=== PATIENT | male | born 1950 | race Caucasian/White ===

== ENCOUNTER 2020-02-17 08:30 | Emergency (ER) | payer MEDICARE, OTHER, SELFPAY ==
[2020-02-17 08:42] VITALS: BP 181/89; PULSE 78; RESP 16; TEMP 36.8; O2SAT 100; BMI 25.9
--- NOTE | 2020-02-17 09:03 | DI.US.S_ITS ---
PROCEDURE: US PERIPH VENOUS LOW EXTREM LT INDICATIONS: left leg pain and swelling TECHNIQUE: Real-time imaging, as well as color and pulse Doppler interrogation, were performed of the lower extremity deep veins from the inguinal ligament to the popliteal fossa. COMPARISON: None. FINDINGS: The common femoral, femoral and popliteal veins are normally compressible, and free of intraluminal thrombus. Color and pulse Doppler demonstrate normal phasic intraluminal flow. There is normal augmentation response to distal compression maneuver. IMPRESSION: No DVT found. Dictated by: Dominick Santa M.D. on 02/17/2020 at 11:22 Approved by: Dominick Santa M.D. on 02/17/2020 at 11:22
--- NOTE | 2020-02-17 09:03 | DI.RAD.S_ITS ---
PROCEDURE: XR KNEE LT 3V INDICATIONS: left knee pain TECHNIQUE: 3 views of the knee were acquired. COMPARISON: None. FINDINGS: Bones: No fractures or dislocations. No suspicious bony lesions. Soft tissues: No joint effusion. No suspicious soft tissue calcifications. IMPRESSION: No trauma found. Dictated by: Dominick Santa M.D. on 02/17/2020 at 9:52 Approved by: Dominick Santa M.D. on 02/17/2020 at 9:54
--- NOTE | 2020-02-17 09:05 | ED_ITS ---
HPI - Extremity Problem General Chief complaint: Extremity Problem,Nontraumatic Stated complaint: left leg villa down hurting Time Seen by Provider: 02/17/20 08:40 Source: patient Mode of arrival: Family Vehicle Limitations: no limitations History of Present Illness HPI Narrative: CC: Left leg swelling and pain over the left villa HPI: The patient is a very active 69-year-old male who states that he has had left leg pain for the last 2 days prior to admission. He states that he woke up and just developed pain and discomfort spontaneously in the left anterior leg. He denies any new recent fall injury or crush injury. He injured the leg significantly 3-4 years ago and thought maybe this was just a flare up. 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 He is worried because he states that he is driving to [place] on Thursday and does not want the pain to flare up. He says the pain is a dull achy discomfort that is 5 to 7/10 in intensity and sometimes sharp and stabbing when walking and bearing weight. He denies any recent head injury neck injury back injury. He has had no fever chills or sweats. He denies a history of diabetes mellitus stroke myocardial infarction but has a history of hypertension. He does not smoke cigarettes drinks alcohol socially does not use marijuana. Related Data Home Medications Medication Instructions Recorded Confirmed hydroxychloroquine 02/17/20 losartan 25 mg PO DAILY 02/17/20 02/17/20 meloxicam 15 mg PO DAILY 02/17/20 02/17/20 Previous Rx's Medication Instructions Recorded doxycycline hyclate 100 mg PO BID #14 cap 02/17/20 lidocaine 1 patch TOP DAILY #5 each 02/17/20 naproxen [Naprosyn] 500 mg PO BID PRN #14 tab 02/17/20 Allergies Allergy/AdvReac Type Severity Reaction Status Date / Time No Known Drug Allergies Allergy Verified 02/17/20 08:47 Review of Systems Review of Systems Narrative: REVIEW OF SYSTEMS: CONSTITUTIONAL: The patient denies any fever chills or sweats. NEUROLOGICAL: He has had no headache head injury numbness tingling paresthesias anesthesia is presents or paralysis. EENT: He has had no sore throat change in vision loss of vision CARDIO-PULMONARY: He denies any chest pain cough shortness of breath HEMOTOLOGICAL: He denies any bleeding abnormalities or bruising. GASTROINTESTINAL: He has had no nausea vomiting diarrhea GENITAL URINARY: He has had no urinary symptoms. MUSCULOSKELETAL/ RHEUMATOLOGICAL: The only pain and discomfort is in his left leg. His calf seems to be swollen and mildly tight. No known injury no back pain. Patient History Medical History Arthritis (Acute) Social History Smoking Status: Former smoker Smoking Status: Former smoker alcohol intake frequency: 0-2 drinks per day Substance Use Type: does not use Exam Narrative Exam Narrative: PHYSICAL EXAM: CONSTITUTIONAL: Awake, Alert, Oriented, Coherent, Cooperative in NAD. HEAD: AT/NC EENT: PERRL, FROM of eyes, no discharge, no nystagmus NECK: Supple, no obvious JVD, Trachea is midline without stridor, no palpable LN. SPINE: Palpationof the cervical, Thoracic, Lumbar or Sacral spine reveals no gross deformity or tenderness. No CVA tenderness. THORAX: No deformity, retractions, chest wall tenderness. LUNGS: Clear, symmetrical breath sounds without respiratory distress. HEART: Normal heart tones, regular rhythm and rate without murmur. ABDOMEN: Soft, non-tender, without guarding, rebound, rigidity or palpable mass. EXTREMITIES: The patient has a swollen tender red warm prepatellar lateral swollen bursa. He has full flexion extension of his knee and left hip. There is mild tenderness to palpation of the posterior calf with mild swelling of the left leg. Dorsalis pedis pulse is intact and 1+.. SKIN: No rash, bruising, petechiae or purpura. NEURO: Awake, alert, oriented, conversive, cranial nerves II-XII are symmetrical , moves all 4 extremities and is ambulatory. Initial Vital Signs Initial Vital Signs: Vital Signs Temperature 98.3 F 02/17/20 08:42 Pulse Rate 78 02/17/20 08:42 Respiratory Rate 16 02/17/20 08:42 Blood Pressure 181/89 H 02/17/20 08:42 Pulse Oximetry 100 02/17/20 08:42 Course Course Course Narrative: 917: The patient is on meloxicam and hydroxychloroquine for rheumatoid arthritis. He has had no a arrhythmias racing of his heart dizziness or lightheadedness. The patient is worried that he may have a blood clot in his legs especially when he is driving to [place]. 1045: The ultrasound stated that his ultrasound was negative for deep vein thrombophlebitis. Orders Ordered: Discontinued Medications Ketorolac Tromethamine (Toradol) 15 mg IM NOW ONE Stop: 02/17/20 09:05 Last Admin: 02/17/20 09:12 Dose: 15 mg Documented by: SERAFIN Lidocaine (Lidoderm) 1 each TOP NOW ONE Stop: 02/17/20 10:10 Last Admin: 02/17/20 10:31 Dose: 1 each Documented by: SERAFIN Vital Signs Vital signs: Vital Signs - 8 hr 02/17/20 08:42 02/17/20 09:59 Temperature 98.3 F Pulse Rate 78 68 Respiratory Rate 16 Blood Pressure 181/89 H Blood Pressure [Right Arm] 150/76 H Pulse Oximetry 100 100 MDM - Extremity (Nontraumatic) Lab Data Result diagrams: 02/17/20 09:21 Labs: Lab Results 02/17/20 Range/Units 09:21 WBC 10.4 (4.5-11.0) X10^3/uL RBC 4.22 L (4.5-5.9) X10^6/uL Hgb 13.6 (13.5-17.5) g/dL Hct 38.4 L (41-53) % MCV 91.0 (80-100) fL MCH 32.3 (26-34) PG MCHC 35.5 (30-36) % RDW 13.8 (11.6-14.8) % Plt Count 180 (150-400) X10^3/uL Neut % (Auto) 70.4 (50-75) % Lymph % (Auto) 13.0 L (25-40) % Hughes % (Auto) 13.4 (3-14) % Eos % (Auto) 2.7 (2-4) % Baso % (Auto) 0.5 (0-2) % Neut # (Auto) 7300 H (5476-8328) /uL Lymph # (Auto) 1400 (5617-6498) /uL Hughes # (Auto) 1400 H (0-900) /uL Eos # (Auto) 300 (0-450) /uL Baso # (Auto) 100 (0-100) /uL Discharge Plan Departure Patient Disposition: Home Clinical Impression: Bursitis, prepatellar, left Discharge Date/Time: 02/17/20 10:51 Instructions: DI for Bursitis Activity Restrictions/Additional Instructions: 1. The the swelling over your anterior left knee is a prepatellar bursitis. It is due to at irritation on your knees. If you must be on your knees please use knee cushions/protectors. Do not wrap the knees or the bursa with an Sohail wrap or neoprene wrap. This potentially can make the bursitis worse with increased friction and pressure. 2. Rest the knees as much as possible. 3. Apply ice cold compresses for 20-30 minutes every 2-3 hours for the next 48 hours as much as possible. 4. For the pain and discomfort take Naprosyn 500 mg twice a day instead of your meloxicam . Do not take both the meloxicam or Naprosyn. Take 1 or the other take the 1 which seems to help your pain and discomfort the most.. 5. If the bursitis becomes more red, more tender, or you develop a fever you need to proceed to the nearest emergency department to be re-evaluated in determine whether not you are developing an infection. Prescriptions: New doxycycline hyclate 100 mg capsule 100 mg PO BID Qty: 14 RF: 0 naproxen [Naprosyn] 500 mg tablet 500 mg PO BID PRN (Reason: pain) Qty: 14 RF: 0 lidocaine 5 % adhesive patch,medicated 1 patch TOP DAILY Qty: 5 RF: 0 No Action hydroxychloroquine RF: 0 meloxicam 15 mg Tablet 15 mg PO DAILY RF: 0 losartan 25 mg Tablet 25 mg PO DAILY RF: 0
[2020-02-17] MEDS: KETOROLAC 60 MG/2 ML VIAL 15 MG IM (09:12)
[2020-02-17 09:29] LABS: Add Manual Diff / Slide Review NO; Basophils Absolute Auto 100 /uL (0-100); Basophils Percent Auto 0.5 % (0-2); Eosinophils Absolute Auto 300 /uL (0-450); Eosinophils Percent Auto 2.7 % (2-4); Hematocrit 38.4 % (41-53); Hemoglobin 13.6 g/dL (13.5-17.5); Lymphocytes Absolute Auto 1400 /uL (1100-4500); Mean Corpuscular HGB Conc 35.5 % (30-36); Mean Corpuscular Hemoglobin 32.3 PG (26-34); Monocytes Absolute Auto 1400 /uL (0-900); Monocytes Percent Auto 13.4 % (3-14); Neutrophils Absolute Auto 7300 /uL (1500-7000); Neutrophils Percent Auto 70.4 % (50-75); Platelet Count 180 X10^3/uL (150-400); Red Blood Cell Count 4.22 X10^6/uL (4.5-5.9); Red Cell Distribution Width 13.8 % (11.6-14.8); White Blood Cell Count 10.4 X10^3/uL (4.5-11.0)
[2020-02-17 09:59] VITALS: BP 150/76; PULSE 68; O2SAT 100
[2020-02-17] MEDS: LIDOCAINE PATCH 1 EACH ADH..PATCH TOP (10:31)
== END 2020-02-17 10:51 | disposition home or self-care (01) ==
PROVIDERS: Emergency Provider Emergency Medicine
DX: M70.42 Prepatellar bursitis, left knee (principal)
CPT/HCPCS: 36415; 73562; 85025; 93971; 96372; 99283; J1885

== ENCOUNTER → 2020-03-28 12:36 | Outpatient (CLI) | payer MEDICARE, OTHER, SELFPAY | PROVIDERS: Visit Provider Physician Assistant | DX: R21 Rash and other nonspecific skin eruption (principal) | CPT/HCPCS: 87070; 87075; 87077; 87186; 87205 ==

== ENCOUNTER 2022-06-06 13:08 | Emergency (ER) | payer MEDICARE, BC, SELFPAY ==
[2022-06-06 13:25] VITALS: BP 156/86; PULSE 82; RESP 16; TEMP 36.5; O2SAT 97; BMI 23.5
[2022-06-06 13:33] VITALS: BP 168/93; PULSE 70; RESP 18; O2SAT 100
[2022-06-06 13:36] VITALS: BP 168/93; PULSE 89; RESP 13; O2SAT 100
[2022-06-06 13:41] VITALS: TEMP 37.1
--- NOTE | 2022-06-06 13:54 | ED_ITS ---
HPI - Skin/Abscess/Foreign Bdy General Chief complaint: Skin/Abscess/Foreign Body Stated complaint: Swelling in right arm- sent by [facility] Time Seen by Provider: 06/06/22 13:32 Source: patient Mode of arrival: Ambulatory History of Present Illness HPI narrative: Patient is a 72-year-old male who a couple days ago started noticing some pain and swelling and redness to his right elbow. There is not 1 specific incident that caused his discomfort. He does have a ?skin condition ?for which she sees a optical effects layout person that causes him to have ulcerations in his skin. He is several those on his upper extremities. These are not new for him. He denies any fever. He states he has some pressure when he flexes his elbow but no pain. He went to the walk-in clinic was sent to the emergency department for evaluation. Related Data Home Medications Medication Instructions Recorded Confirmed hydroxychloroquine 02/17/20 03/28/20 losartan 25 mg tablet 25 mg PO DAILY 02/17/20 03/28/20 meloxicam 15 mg tablet 15 mg PO DAILY 02/17/20 03/28/20 Previous Rx's Medication Instructions Recorded doxycycline hyclate 100 mg capsule 100 mg PO BID #14 caps 02/17/20 lidocaine 5 % topical patch 1 patch topical DAILY #5 ea 02/17/20 naproxen 500 mg tablet (Naprosyn) 500 mg PO BID PRN pain #14 tabs 02/17/20 triamcinolone acetonide 0.1 % 1 applic topical BID #80 grams 03/28/20 topical cream sulfamethoxazole 400 1 tab PO BID 7 days #14 tabs 06/06/22 mg-trimethoprim 80 mg tablet (Bactrim) Allergies Allergy/AdvReac Type Severity Reaction Status Date / Time No Known Drug Allergies Allergy Verified 06/21/21 14:30 Review of Systems Constitutional Constitutional: Reports system reviewed and no additional complaints, except as documented Musculoskeletal Musculoskeletal: Reports system reviewed and no additional complaints, except as documented Integumentary/Breasts Skin/Breast: Reports system reviewed and no additional complaints, except as documented Neurologic Neurologic: Reports system reviewed and no additional complaints, except as documented Hematologic/Lymphatic On Anticoagulants: No Patient History Medical History Arthritis Cellulitis Skin rash Social History Smoking Status: Former smoker Smoking Status: Former smoker alcohol intake frequency: 0-2 drinks per day Substance Use Type: does not use Exam Initial Vital Signs Initial Vital Signs: Vital Signs Temperature 97.7 F 06/06/22 13:25 Pulse Rate 82 06/06/22 13:25 Respiratory Rate 16 06/06/22 13:25 Blood Pressure 156/86 H 06/06/22 13:25 Pulse Oximetry 97 06/06/22 13:25 Oxygen Delivery Method 06/06/22 13:25 HENND Head: normal to inspection and normocephalic Cardio Pulses: radial pulses present on the right Skin Other: Multiple lesions on bilateral upper extremities in various stages of healing. He has redness located mostly over the olecranon and some distal to this area that is warm to the touch. There is no active bleeding. No defined abscess. Neuro Sensory Exam: no sensory deficits noted Extrem Other: Full range of motion of the right elbow however he does have ?fullness? when he is in flexion. He states he has no joint tenderness with doing this. His right shoulder and right wrist unremarkable. Course Orders Ordered: Aspirin (Aspirin Ec 325 Mg Tablet) 325 mg PO NOW ONE Stop: 06/06/22 13:56 Vital Signs Vital signs: Vital Signs - 8 hr 06/06/22 13:25 06/06/22 13:33 06/06/22 13:41 Temperature 97.7 F 98.7 F Pulse Rate 82 70 Respiratory Rate 16 18 Blood Pressure 156/86 H 168/93 H Pulse Oximetry 97 100 Oxygen Delivery Method Room Air MDM - Skin/Abscess/Foreign Bdy MDM Narrative Medical decision making narrative: Patient does have findings that are concerning for cellulitis over his right elbow. He has multiple lesions on his right arm which could be the nidus for this. No defined abscess. He does have an effusion of the olecranon however it appears to be small. I did consider a septic joint however given his presentation today I discussed with him about drainage/arthrocentesis and we discussed the risks of potentially introducing an infection to this area going through the skin that is obviously cellulitic. I do have a low suspicion today for a septic joint given his presentation and the fact that he can flex and extend his elbow without much discomfort. The plan will be is to place him on oral antibiotics for the next couple days however if his symptoms worsen he will return to the emergency department and understands he may need a more complete workup. He expressed understanding and agreement this plan. Discharge Plan Departure Patient Disposition: Home Clinical Impression: Cellulitis Instructions: DI for Cellulitis -- Adult Activity Restrictions/Additional Instructions: A prescription for antibiotics was sent to [facility]. Start taking it as directed. Like we discussed over the next couple days if your symptoms worsen or you have more pain or you start having fevers or the redness worsens you do need to return to the emergency department. Contact your primary doctor for follow-up. Prescriptions: New sulfamethoxazole-trimethoprim [Bactrim] 400-80 mg tablet 1 tab PO BID 7 Days Qty: 14 0RF No Action triamcinolone acetonide 0.1 % cream 1 applic TOP BID Qty: 80 0RF hydroxychloroquine meloxicam 15 mg Tablet 15 mg PO DAILY losartan 25 mg Tablet 25 mg PO DAILY doxycycline hyclate 100 mg capsule 100 mg PO BID Qty: 14 0RF naproxen [Naprosyn] 500 mg tablet 500 mg PO BID PRN (Reason: pain) Qty: 14 0RF Rx Instructions: take either meloxicam or naprosyn, not both, whichever relieves your pain lidocaine 5 % adhesive patch,medicated 1 patch TOP DAILY Qty: 5 0RF Rx Instructions: leave on most painful area for up to 12 hrs
[2022-06-06 14:00] VITALS: BP 154/102; PULSE 77; RESP 14; O2SAT 100
[2022-06-06] MEDS: ASPIRIN EC 325 MG TABLET PO (14:08)
== END 2022-06-06 14:10 | disposition home or self-care (01) ==
PROVIDERS: Emergency Provider Emergency Medicine
DX: L03.113 Cellulitis of right upper limb (principal)
CPT/HCPCS: 99283

== ENCOUNTER 2023-03-31 10:36 | Emergency (ER) | payer MEDICARE, BC, SELFPAY ==
[2023-03-31] VITALS (10 sets, daily range): BP systolic 137–194; BP diastolic 71–89; PULSE 66–94; RESP 14–26; TEMP 36.5; O2SAT 90–100; BMI 25.0
--- NOTE | 2023-03-31 10:49 | DI.RAD.S_ITS ---
PROCEDURE: XR CHEST 1V INDICATIONS: chest pain TECHNIQUE: One view of the chest was acquired. COMPARISON: None. FINDINGS: Surgical changes and devices: None. Lungs and pleura: Lungs are clear. No pleural effusions or pneumothorax. Mediastinum: Mediastinal contours appear normal. Heart size is normal. Bones and chest wall: No suspicious bony lesions. Overlying soft tissues appear unremarkable. IMPRESSION: No acute cardiopulmonary pathology. Dictated by: Bhupendra Yu M.D. on 03/31/2023 at 11:06 Approved by: Bhupendra Yu M.D. on 03/31/2023 at 11:06
[2023-03-31 10:57] LABS: Add Manual Diff / Slide Review NO; Basophils Absolute Auto 0 /uL (0-100); Basophils Percent Auto 0.4 % (0-2); Eosinophils Absolute Auto 0 /uL (0-450); Eosinophils Percent Auto 0.3 % (2-4); Hematocrit 41.6 % (41-53); Hemoglobin 14.4 g/dL (13.5-17.5); Lymphocytes Absolute Auto 700 /uL (1100-4500); Lymphocytes Percent Auto 6.8 % (25-40); Mean Corpuscular HGB Conc 34.7 % (30-36); Mean Corpuscular Hemoglobin 31.3 PG (26-34); Mean Corpuscular Volume 90.2 fL (80-100); Monocytes Absolute Auto 700 /uL (0-900); Monocytes Percent Auto 7.2 % (3-14); Neutrophils Absolute Auto 8800 /uL (1500-7000); Neutrophils Percent Auto 85.3 % (50-75); Platelet Count 189 X10^3/uL (150-400); Red Blood Cell Count 4.61 X10^6/uL (4.5-5.9); Red Cell Distribution Width 13.1 % (11.6-14.8); White Blood Cell Count 10.3 X10^3/uL (4.5-11.0)
[2023-03-31 11:12] LABS: INR 1.1 (0.9-1.3); Prothrombin Time 12.2 SECONDS (10.1-12.7)
[2023-03-31 11:14] LABS: Alanine Aminotransferase 55 IU/L (<50); Albumin 4.5 g/dL (3.5-5.0); Albumin Globulin Ratio 1.4 (1.0-2.8); Alkaline Phosphatase 88 U/L (38-126); Aspartate Aminotransferase 78 IU/L (17-59); BUN Creatinine Ratio 23.1 (6-22); Bilirubin Total 1.2 mg/dL (0.2-1.3); Blood Urea Nitrogen 21 mg/dL (9-20); Calcium 9.4 mg/dL (8.4-10.2); Carbon Dioxide 25 mmol/L (22-32); Chloride 95 mmol/L (98-107); Creatine Kinase 96 U/L (55-170); Estimated Glomerular Filt Rate > 60 mL/min (>60); Globulin 3.2 g/dL (1.7-4.1); Glucose 107 mg/dL (80-110); HEMOLYSIS < 15 (0-50); Lipase 107 U/L (23-300); Magnesium 1.5 mg/dL (1.6-2.3); Potassium 4.4 mmol/L (3.4-5.1); Sodium 129 mmol/L (137-145); Total Protein 7.7 g/dL (6.3-8.2)
[2023-03-31 11:15] LABS: PTT Partial Thromboplastin Tim 31 SECONDS (26-36)
[2023-03-31 11:25] LABS: Troponin I < 0.012 ng/mL (0.01-0.034)
--- NOTE | 2023-03-31 11:55 | ED.ARRPALP ---
HPI - Arrhythmia/Palpitations General Chief Complaint: Arrhythmia/Palpitations Stated Complaint: AFIB Time Seen by Provider: 03/31/23 11:50 Source: patient Mode of arrival: Ambulatory Limitations: no limitations History of Present Illness HPI narrative: This is a 72-year-old male with history of intermittent atrial fibrillation, hypertension, rheumatoid arthritis and alcohol use who presents with complaint of elevated and irregular heart rate earlier today. Patient states he felt a little off the last day he was checking his heart rate with a pulse oximeter and got up to 211 for a few seconds. He states he felt very tight in his chest he would some chest pain for those few seconds and then resolved, he states shortness of breath with exertion during that. But no shortness of breath. No active chest pain, no shortness of breath currently, no nausea no vomiting, no diaphoresis, no swelling of extremities. Patient states he has had some AFib issues in the past but has always resolved on its own. He states it went away by the time he arrived. Patient states he is on hydroxychloroquine for rheumatoid arthritis, losartan for blood pressure and an aspirin daily. No prior surgeries. No known drug allergies. No tobacco does drink a bottle of alcohol daily, no illicit. Primary care is through [facility] in [place], patient lives here intermittently has follow-up. Patient does not have primary care Cardiology. Related Data Home Medications Medication Instructions Recorded Confirmed hydroxychloroquine 02/17/20 03/28/20 losartan 25 mg tablet 25 mg PO DAILY 02/17/20 03/28/20 meloxicam 15 mg tablet 15 mg PO DAILY 02/17/20 03/28/20 Previous Rx's Medication Instructions Recorded doxycycline hyclate 100 mg capsule 100 mg PO BID #14 caps 02/17/20 lidocaine 5 % topical patch 1 patch topical DAILY #5 ea 02/17/20 naproxen 500 mg tablet (Naprosyn) 500 mg PO BID PRN pain #14 tabs 02/17/20 triamcinolone acetonide 0.1 % 1 applic topical BID #80 grams 03/28/20 topical cream Allergies Allergy/AdvReac Type Severity Reaction Status Date / Time No Known Drug Allergies Allergy Verified 03/31/23 10:49 Review of Systems Review of Systems ROS Unobtainable: All systems reviewed & are unremarkable except as noted in HPI and below Patient History Medical History Arthritis Cellulitis Skin rash Social History Smoking Status: Former smoker Smoking Status: Former smoker alcohol intake frequency: 0-2 drinks per day Substance Use Type: does not use Exam Narrative Exam Narrative: GENERAL: Alert and oriented x three, elderly male in no acute distress. HEENT: Head normocephalic, atraumatic, EOMI, pupils reactive, face symmetric, moist mucous membranes NECK: Supple, full range of motion CARDIOVASCULAR: Regular rate and rhythm without murmurs, rubs or gallops. No JVD. No swelling bilateral lower extremities. RESPIRATORY: Breath sounds equal bilaterally, no wheezes rales or rhonchi. ABDOMEN: Soft, nontender. Normoactive bowel sounds all 4 quadrants. No guarding or rebound, rigidity, no mass : No CVA tenderness EXTREMITIES: Normal range of motion, no clubbing or edema. Neurovascularly intact NEUROLOGICAL: Cranial nerves II through XII grossly intact. Moving all extremities SKIN: Warm, dry, no petechiae, no rashes or lesions. Initial Vital Signs Initial Vital Signs: Vital Signs Temperature 97.7 F 03/31/23 10:37 Pulse Rate 79 03/31/23 10:37 Respiratory Rate 18 03/31/23 10:37 Blood Pressure 172/81 H 03/31/23 10:37 Pulse Oximetry 99 03/31/23 10:37 Oxygen Delivery Method Room Air 03/31/23 10:37 Course Orders Ordered: ED Orders 03/31/23 10:46 BNP [NT-proBNP (BNP-Adult 18+)] Stat Complete Blood Count AUTO DIFF Stat Comprehensive Metabolic Panel Stat Lipase Stat Magnesium Stat PTT Partial Thromboplastin Jacob Stat Prothrombin Time INR Stat Troponin & CK Cardiac Panel Stat 03/31/23 10:49 XR chest 1V Stat 03/31/23 10:52 EKG-12 Lead Stat 03/31/23 12:34 Trop I [Troponin I] Stat Vital Signs Vital signs: Vital Signs - 8 hr 03/31/23 10:37 03/31/23 10:40 03/31/23 10:40 Temperature 97.7 F Pulse Rate 79 94 H Respiratory Rate 18 Blood Pressure 172/81 H 172/81 H Pulse Oximetry 99 98 Oxygen Delivery Method Room Air 03/31/23 11:00 03/31/23 11:00 03/31/23 11:30 Temperature Pulse Rate 74 Respiratory Rate 18 Blood Pressure 137/89 149/71 H Pulse Oximetry 98 Oxygen Delivery Method 03/31/23 11:30 03/31/23 12:00 03/31/23 12:00 Temperature Pulse Rate 72 72 Respiratory Rate 21 23 Blood Pressure 150/73 H Pulse Oximetry 97 97 Oxygen Delivery Method 03/31/23 12:32 03/31/23 12:33 03/31/23 12:33 Temperature Pulse Rate 71 70 Respiratory Rate 14 Blood Pressure 145/77 H Pulse Oximetry 90 L 97 Oxygen Delivery Method 03/31/23 13:00 03/31/23 13:30 03/31/23 13:40 Temperature Pulse Rate 71 66 72 Respiratory Rate 20 21 26 H Blood Pressure Pulse Oximetry 97 100 94 Oxygen Delivery Method 03/31/23 13:40 Temperature Pulse Rate Respiratory Rate Blood Pressure 194/76 H Pulse Oximetry Oxygen Delivery Method MDM - Arrhythmia/Palpitations Lab Data 03/31/23 10:46 03/31/23 10:46 Labs: Lab Results 03/31/23 03/31/23 03/31/23 Range/Units 10:46 10:46 10:46 WBC 10.3 (4.5-11.0) X10^3/uL RBC 4.61 (4.5-5.9) X10^6/uL Hgb 14.4 (13.5-17.5) g/dL Hct 41.6 (41-53) % MCV 90.2 (80-100) fL MCH 31.3 (26-34) PG MCHC 34.7 (30-36) % RDW 13.1 (11.6-14.8) % Plt Count 189 (150-400) X10^3/uL Neut % (Auto) 85.3 H (50-75) % Lymph % (Auto) 6.8 L (25-40) % [place] % (Auto) 7.2 (3-14) % Eos % (Auto) 0.3 L (2-4) % Baso % (Auto) 0.4 (0-2) % Neut # (Auto) 8800 H (6135-9521) /uL Lymph # (Auto) 700 L (0289-9277) /uL [place] # (Auto) 700 (0-900) /uL Eos # (Auto) 0 (0-450) /uL Baso # (Auto) 0 (0-100) /uL PT 12.2 (10.1-12.7) SECONDS INR 1.1 (0.9-1.3) APTT 31 (26-36) SECONDS Sodium 129 L (137-145) mmol/L Potassium 4.4 (3.4-5.1) mmol/L Chloride 95 L (98-107) mmol/L Carbon Dioxide 25 (22-32) mmol/L BUN 21 H (9-20) mg/dL Creatinine 0.91 (0.66-1.25) mg/dL Estimated GFR > 60 (>60) mL/min BUN/Creatinine Ratio 23.1 H (6-22) Glucose 107 (80-110) mg/dL Calcium 9.4 (8.4-10.2) mg/dL Magnesium 1.5 L (1.6-2.3) mg/dL Total Bilirubin 1.2 (0.2-1.3) mg/dL AST 78 H (17-59) IU/L ALT 55 H (<50) IU/L Alkaline Phosphatase 88 (38-126) U/L Total Creatine Kinase 96 (55-170) U/L Troponin I < 0.012 (0.01-0.034) ng/mL NT-Pro-B Natriuret Pep (<125) pg/mL Total Protein 7.7 (6.3-8.2) g/dL Albumin 4.5 (3.5-5.0) g/dL Globulin 3.2 (1.7-4.1) g/dL Albumin/Globulin Ratio 1.4 (1.0-2.8) Lipase 107 (23-300) U/L 03/31/23 03/31/23 Range/Units 10:46 12:34 WBC (4.5-11.0) X10^3/uL RBC (4.5-5.9) X10^6/uL Hgb (13.5-17.5) g/dL Hct (41-53) % MCV (80-100) fL MCH (26-34) PG MCHC (30-36) % RDW (11.6-14.8) % Plt Count (150-400) X10^3/uL Neut % (Auto) (50-75) % Lymph % (Auto) (25-40) % [place] % (Auto) (3-14) % Eos % (Auto) (2-4) % Baso % (Auto) (0-2) % Neut # (Auto) (4290-7442) /uL Lymph # (Auto) (2594-3075) /uL [place] # (Auto) (0-900) /uL Eos # (Auto) (0-450) /uL Baso # (Auto) (0-100) /uL PT (10.1-12.7) SECONDS INR (0.9-1.3) APTT (26-36) SECONDS Sodium (137-145) mmol/L Potassium (3.4-5.1) mmol/L Chloride (98-107) mmol/L Carbon Dioxide (22-32) mmol/L BUN (9-20) mg/dL Creatinine (0.66-1.25) mg/dL Estimated GFR (>60) mL/min BUN/Creatinine Ratio (6-22) Glucose (80-110) mg/dL Calcium (8.4-10.2) mg/dL Magnesium (1.6-2.3) mg/dL Total Bilirubin (0.2-1.3) mg/dL AST (17-59) IU/L ALT (<50) IU/L Alkaline Phosphatase (38-126) U/L Total Creatine Kinase (55-170) U/L Troponin I < 0.012 (0.01-0.034) ng/mL NT-Pro-B Natriuret Pep 408 H (<125) pg/mL Total Protein (6.3-8.2) g/dL Albumin (3.5-5.0) g/dL Globulin (1.7-4.1) g/dL Albumin/Globulin Ratio (1.0-2.8) Lipase (23-300) U/L Imaging Data Chest x-ray: Radiologist's Impresson: [address] [address] XRay Report Signed Patient: Isrrael Ochoa MR#: [id number] : 1950 Acct:[id number] Age/Sex: 72 / M Date of Service: 03/31/23 Loc: ED Accession Number: [id number] ?? Procedure: XR chest 1V Ordering Provider: Lili Koenig D.O. PROCEDURE:? XR CHEST 1V ? INDICATIONS:? chest pain ? TECHNIQUE:? One view of the chest was acquired.? ? COMPARISON:? None. ? FINDINGS:? ? Surgical changes and devices:? None.? ? Lungs and pleura:? Lungs are clear.? No pleural effusions or pneumothorax.? ? Mediastinum:? Mediastinal contours appear normal.? Heart size is normal.? ? Bones and chest wall:? No suspicious bony lesions.? Overlying soft tissues appear unremarkable.? ? IMPRESSION:? No acute cardiopulmonary pathology. ? ? Dictated by: Bhupendra Yu M.D. on 03/31/2023 at 11:06 ? ? Approved by: Bhupendra Yu M.D. on 03/31/2023 at 11:06?? ECG Data Attestation: I personally reviewed and interpreted this ECG as follows: Prior ECG tracings: not available for review Interpretation: Sinus rhythm rate of 77, SD 126 QRS of [address] No acute [address] elevation or depression. No priors for comparison available. Sinus rhythm rate of 68 SD 122 QRS of 90 QTC [address] depression or elevation noted. MDM Narrative Medical decision making narrative: This is a 72-year-old male with episode of irregular elevated heart rate at home, has had reported atrial fibrillation in the past but has always self resolved. He is anti quite with aspirin only, patient does drink quite a bit alcohol which would predispose him to arrhythmias. Patient's symptoms had resolved prior to arrival. Patient's labs show normal CBC no anemia, normal platelets, coags appropriate, sodium is 129 discussed with patient likely secondary to alcohol use, chloride 95, BUN 21, glucose of 107, Mag slightly low at 1.5, AST ALT are 78 and 55, troponin negative with a BNP of 408. Repeat troponin shows no change. EKG 1st and 2nd show no acute changes. Discussed with patient he and I reviewed all of his findings. Discussed decreasing alcohol intake. He is open to having cardiology follow up and having a Holter ZIO patch as an outpatient. He is cardiology established in [place] but not locally so referral was given here as he spends quite a bit of time in the area. Discharge Plan Departure Patient Disposition: Home Clinical Impression: Hyponatremia, Palpitations Instructions: DI for Palpitations Activity Restrictions/Additional Instructions: Please follow-up with cardiology. You would benefit from a Holter monitor or ZIO patch. Referral is included below. Please call for an appointment. Your sodium level is slightly low, this is likely related to your alcohol use, please follow-up to make sure this does not continue to drop. Low sodium levels can make people confused or altered and it very very low can cause seizure activity. Please return for new or worsening symptoms recurrent or persistent fast or irregular heartbeat, chest pain, shortness of breath, lightheadedness or passing out, new swelling in her extremities, persistent vomiting or sweatiness or other new or concerning changes. Prescriptions: No Action triamcinolone acetonide 0.1 % cream 1 applic TOP BID Qty: 80 0RF hydroxychloroquine meloxicam 15 mg Tablet 15 mg PO DAILY losartan 25 mg Tablet 25 mg PO DAILY doxycycline hyclate 100 mg capsule 100 mg PO BID Qty: 14 0RF naproxen [Naprosyn] 500 mg tablet 500 mg PO BID PRN (Reason: pain) Qty: 14 0RF Rx Instructions: take either meloxicam or naprosyn, not both, whichever relieves your pain lidocaine 5 % adhesive patch,medicated 1 patch TOP DAILY Qty: 5 0RF Rx Instructions: leave on most painful area for up to 12 hrs Referrals: Miscellaneous,MD Jv [Primary Care Provider] - Isaiah Wahl MD [Physician] - Stand Alone Forms: Patient Portal/API
[2023-03-31 12:46] LABS: NT-proBNP (BNP-Adult 18+) 408 pg/mL (<125)
[2023-03-31 13:08] LABS: Troponin I < 0.012 ng/mL (0.01-0.034)
== END 2023-03-31 13:44 | disposition home or self-care (01) ==
PROVIDERS: Emergency Provider Emergency Medicine
DX: E87.1 Hypo-osmolality and hyponatremia (principal); R00.2 Palpitations; R07.9 Chest pain, unspecified
CPT/HCPCS: 36415; 71045; 80053; 82550; 83690; 83735; 83880; 84484; 85025; 85610; 85730; 93005; 99284

== ENCOUNTER 2023-05-24 15:33 | Emergency (ER) | payer MEDICARE, BC, SELFPAY ==
[2023-05-24 15:38] VITALS: BP 138/63; PULSE 78; RESP 20; TEMP 36.8; O2SAT 99; BMI 23.8
[2023-05-24 15:46] VITALS: PULSE 82
--- NOTE | 2023-05-24 15:59 | ED.UPPEXIN ---
HPI - Extremity Injury (Upper) General Chief Complaint: Extremity Injury, Upper Stated Complaint: Cut left hand on tomato can Time Seen by Provider: 05/24/23 15:46 Source: patient Mode of arrival: Ambulatory History of Present Illness HPI narrative: Patient presents for evaluation of left hand cut. Patient was opening a can of tomatoes to make tomato sauce for spaghetti when he cut his hand. He does not remember when his last tetanus shot was, he believes he is out of date. Related Data Home Medications Medication Instructions Recorded Confirmed hydroxychloroquine 02/17/20 03/28/20 losartan 25 mg tablet 25 mg PO DAILY 02/17/20 03/28/20 meloxicam 15 mg tablet 15 mg PO DAILY 02/17/20 03/28/20 Previous Rx's Medication Instructions Recorded doxycycline hyclate 100 mg capsule 100 mg PO BID #14 caps 02/17/20 lidocaine 5 % topical patch 1 patch topical DAILY #5 ea 02/17/20 naproxen 500 mg tablet (Naprosyn) 500 mg PO BID PRN pain #14 tabs 02/17/20 triamcinolone acetonide 0.1 % 1 applic topical BID #80 grams 03/28/20 topical cream Allergies Allergy/AdvReac Type Severity Reaction Status Date / Time No Known Drug Allergies Allergy Verified 03/31/23 10:49 Review of Systems Review of Systems Narrative: All other review of systems negative except as mentioned Integumentary/Breasts Comments: Left hand laceration Patient History Medical History Arthritis Cellulitis Skin rash Social History Smoking Status: Former smoker Smoking Status: Former smoker alcohol intake frequency: 0-2 drinks per day Substance Use Type: does not use Exam Initial Vital Signs Initial Vital Signs: Vital Signs Temperature 98.2 F 05/24/23 15:38 Pulse Rate 78 05/24/23 15:38 Respiratory Rate 20 05/24/23 15:38 Blood Pressure 138/63 05/24/23 15:38 Pulse Oximetry 99 05/24/23 15:38 Oxygen Delivery Method Room Air 05/24/23 15:38 Const: Well-nourished, Well-developed, appears stated age Eyes: PERRL, EOMI, conjunctiva normal ENT: Atraumatic, dentition normal RESP: unlabored, clear bilaterally, no wheezing GI: Atraumatic, soft, nontender, nondistended, no rebound, no guarding MSK: Atraumatic, full range of motion, pulses equal Skin: Warm, Dry, 3 cm laceration base of right thumb Neuro: AO x3, CN II-XII grossly intact, moves all extremities Psych: affect normal, mood normal, not suicidal, not homicidal Procedures Laceration Repair Laceration 1: Site: hand Side (If applicable): left Size (cm): 3 Description: linear Depth: simple, single layer Local Anesthetic: lidocaine 1% Amount of anesthesia used (mL): 4 Pre-repair: irrigated extensively and deep structures intact Skin layer closed with: nylon Skin layer suture size: 4-0 Number of sutures: 6 Technique: simple, interrupted Course Course Course Narrative: Accidental laceration to base of left thumb. Patient is neurologically and vascularly intact. Tetanus shot was updated, wound repaired per procedure note. Excellent hemostasis achieved and capillary refill intact. Patient given wound care instructions, ED return precautions discussed at bedside. Patient expressed understanding of the plan and is in agreement at this time. All questions answered at the time of discharge. Orders Ordered: Discontinued Medications Diphtheria/Tetanus/Acell Pertussis (Tet,Diph,Pertuss(Acell),Vac/Pf 0.5 Ml Syringe) 0.5 ml IM .ONCE ONE Stop: 05/24/23 16:00 Last Admin: 05/24/23 16:10 Dose: 0.5 ml Documented By: MARYAM Lidocaine HCl (Lidocaine 1% 20 Ml) 20 ml INJ INTRA-OP ONE Stop: 05/24/23 16:00 Last Admin: 05/24/23 16:09 Dose: 20 ml Documented By: RB Vital Signs Vital signs: Vital Signs - 8 hr 05/24/23 15:38 05/24/23 15:46 Temperature 98.2 F Pulse Rate 78 Pulse Rate [Left] 82 Respiratory Rate 20 Blood Pressure 138/63 Pulse Oximetry 99 Oxygen Delivery Method Room Air Discharge Plan Departure Patient Disposition: Home Clinical Impression: Laceration of hand Instructions: DI for Laceration Repair Activity Restrictions/Additional Instructions: SUTURE REMOVAL IN 7 DAYS Prescriptions: No Action triamcinolone acetonide 0.1 % cream 1 applic TOP BID Qty: 80 0RF hydroxychloroquine meloxicam 15 mg Tablet 15 mg PO DAILY losartan 25 mg Tablet 25 mg PO DAILY doxycycline hyclate 100 mg capsule 100 mg PO BID Qty: 14 0RF naproxen [Naprosyn] 500 mg tablet 500 mg PO BID PRN (Reason: pain) Qty: 14 0RF Rx Instructions: take either meloxicam or naprosyn, not both, whichever relieves your pain lidocaine 5 % adhesive patch,medicated 1 patch TOP DAILY Qty: 5 0RF Rx Instructions: leave on most painful area for up to 12 hrs Referrals: Miscellaneous,Doctor, MD [Primary Care Provider] - Stand Alone Forms: Patient Portal/API
[2023-05-24] MEDS: LIDOCAINE 1% 20 ML INJ (16:09)
[2023-05-24] MEDS: TET,DIPH,PERTUSS(ACELL),VAC/PF 0.5 ML SYRINGE IM (16:10)
[2023-05-24 17:03] VITALS: BP 142/60; PULSE 78; RESP 20; O2SAT 97
== END 2023-05-24 17:03 | disposition home or self-care (01) ==
PROVIDERS: Emergency Provider Emergency Medicine
DX: S61.412A Laceration without foreign body of left hand, initial encounter (principal); W26.8XXA Contact with other sharp object(s), not elsewhere classified, initial encounter; Z23 Encounter for immunization
CPT/HCPCS: 12002; 90471; 99283; 99284; 90715

== ENCOUNTER 2023-06-02 07:44 | Emergency (ER) | payer MEDICARE, BC, SELFPAY ==
[2023-06-02 07:53] VITALS: BP 162/76; PULSE 63; RESP 14; TEMP 36.7; O2SAT 99; BMI 23.5
--- NOTE | 2023-06-02 08:41 | ED.RECABL ---
HPI - Recheck/Abnormal Lab/Rx General Chief Complaint: Recheck/Abnormal Lab/Rx Stated Complaint: stitches removed Time Seen by Provider: 06/02/23 08:38 Source: patient Mode of arrival: Family Vehicle History of Present Illness HPI narrative: Patient 73-year-old male presents today to have sutures removed out of left hand. He cut his hand opening a can of tomato sauce seen on May 24, he had 6 sutures placed. Now here to get them out. Related Data Home Medications Medication Instructions Recorded Confirmed hydroxychloroquine 02/17/20 03/28/20 losartan 25 mg tablet 25 mg PO DAILY 02/17/20 03/28/20 meloxicam 15 mg tablet 15 mg PO DAILY 02/17/20 03/28/20 Previous Rx's Medication Instructions Recorded doxycycline hyclate 100 mg capsule 100 mg PO BID #14 caps 02/17/20 lidocaine 5 % topical patch 1 patch topical DAILY #5 ea 02/17/20 naproxen 500 mg tablet (Naprosyn) 500 mg PO BID PRN pain #14 tabs 02/17/20 triamcinolone acetonide 0.1 % 1 applic topical BID #80 grams 03/28/20 topical cream Allergies Allergy/AdvReac Type Severity Reaction Status Date / Time No Known Drug Allergies Allergy Verified 06/02/23 07:55 Review of Systems Review of Systems ROS Unobtainable: All systems reviewed & are unremarkable except as noted in HPI and below Patient History Medical History Arthritis Cellulitis Skin rash Social History Smoking Status: Former smoker Smoking Status: Former smoker alcohol intake frequency: 0-2 drinks per day Substance Use Type: does not use Exam Initial Vital Signs Initial Vital Signs: Vital Signs Temperature 98.1 F 06/02/23 07:53 Pulse Rate 63 06/02/23 07:53 Respiratory Rate 14 06/02/23 07:53 Blood Pressure 162/76 H 06/02/23 07:53 Pulse Oximetry 99 06/02/23 07:53 Oxygen Delivery Method Room Air 06/02/23 07:53 GENERAL: Well-appearing, well-nourished and in no acute distress. CARDIOVASCULAR: peripheral pulses in tact, cap refill <2 sec RESPIRATORY: No respiratory distress, speaks in full sentences without difficulty EXTREMITIES: Normal range of motion, no clubbing or edema. Neurovascularly intact NEUROLOGICAL: Cranial nerves II through XII grossly intact. Normal gait and speech. SKIN: Left hand laceration between thumb and index finger. Appears moistened but no gross drainage no erythema no sign of infection sutures in place Course Vital Signs Vital signs: Vital Signs - 8 hr 06/02/23 07:53 Temperature 98.1 F Pulse Rate 63 Respiratory Rate 14 Blood Pressure 162/76 H Pulse Oximetry 99 Oxygen Delivery Method Room Air MDM - Recheck/Abnormal Lab/Rx MDM Narrative Medical decision making narrative: Patient has had 6 sutures removed easily. There is still a small amount opening, Steri-Strips placed and Band-Aid placed. No need for antibiotics no evidence of infection. Discharge Plan Departure Patient Disposition: Home Clinical Impression: Visit for suture removal Instructions: DI for Suture Removal Activity Restrictions/Additional Instructions: *You have been diagnosed with suture removal *What to do: Keep and covered during the day while active or injury places. Keep an and dry with soap and water. May apply antibiotic ointment. Be sure to air out when able *Continue to take medications as directed *Follow up with your primary care provider in 2-3 days or call [phone] *Return to ER if you should have redness swelling drainage or any new, worsening or concerning symptoms Prescriptions: No Action triamcinolone acetonide 0.1 % cream 1 applic TOP BID Qty: 80 0RF hydroxychloroquine meloxicam 15 mg Tablet 15 mg PO DAILY losartan 25 mg Tablet 25 mg PO DAILY doxycycline hyclate 100 mg capsule 100 mg PO BID Qty: 14 0RF naproxen [Naprosyn] 500 mg tablet 500 mg PO BID PRN (Reason: pain) Qty: 14 0RF Rx Instructions: take either meloxicam or naprosyn, not both, whichever relieves your pain lidocaine 5 % adhesive patch,medicated 1 patch TOP DAILY Qty: 5 0RF Rx Instructions: leave on most painful area for up to 12 hrs Referrals: Miscellaneous,Doctor, MD [Primary Care Provider] - Stand Alone Forms: Patient Portal/API
== END 2023-06-02 08:50 | disposition home or self-care (01) ==
PROVIDERS: Emergency Provider Emergency Medicine
DX: Z48.02 Encounter for removal of sutures (principal)
CPT/HCPCS: 99281

== ENCOUNTER 2024-03-27 15:49 | Observation (INO) | payer MEDICARE, BC, SELFPAY ==
[2024-03-27] VITALS (23 sets, daily range): BP systolic 166–210; BP diastolic 70–100; PULSE 53–65; RESP 16–37; TEMP 36.4–36.5; O2SAT 94–100; BMI 25.0; BMI 24.1
--- NOTE | 2024-03-27 16:06 | DI.RAD.S_ITS ---
PROCEDURE: XR CHEST 1V INDICATIONS: chest pain TECHNIQUE: One view of the chest was acquired. COMPARISON: [facility], CR, XR CHEST 1V, 03/31/2023, 10:46. FINDINGS: Surgical changes and devices: None. Lungs and pleura: Lungs are clear. No pleural effusions or pneumothorax. Mediastinum: Mediastinal contours appear normal. Heart size is normal. Bones and chest wall: No suspicious bony lesions. Overlying soft tissues appear unremarkable. IMPRESSION: No acute cardiopulmonary abnormality is seen. Dictated by: Javan Domingo M.D. on 03/27/2024 at 15:41 Approved by: Javan Domingo M.D. on 03/27/2024 at 15:41
--- NOTE | 2024-03-27 16:14 | EKG_ITS ---
[address] [address] Test Date: 2024-03-27 Pat Name: Isrrael Ochoa Department: [facility] Room: Gender: Male Help Desk Operator: BRIGITTE : 1950 Requested By: Order Number: [id number] Reading MD: Soto Finch MD Measurements Intervals [place] Rate: 60 P: 27 NE: 160 QRS: -7 QRSD: 80 T: -40 QT: 498 QTc: 498 Interpretive Statements Normal sinus rhythm Septal infarct , age undetermined T wave abnormality, consider anterolateral ischemia Electronically Signed On 03-28-2024 7:55:37 PDT by Soto Finch MD
--- NOTE | 2024-03-27 16:17 | ED_ITS ---
HPI - Chest Pain <Santhosh Mcdonald DO - Last Filed: 03/28/24 07:00> General Chief Complaint: Chest Pain Stated Complaint: SOB Time Seen by Provider: 03/27/24 16:07 Source: patient Mode of arrival: Ambulatory Limitations: no limitations History of Present Illness HPI narrative: Patient has a 73-year-old male. History of AFib over a year ago that sounds like converted on its own. Not on anticoagulation. No history of coronary artery disease. No history of CVA. Not a diabetic. Does have history of arthritis who is here for evaluation of 2 days of worsening shortness of breath/dyspnea on exertion. Did have some chest discomfort earlier today. No cough. Does have lower extremity swelling. He does have a history of alcohol abuse. Recently was discharged from 3 day medical detox. He did drink over the March 24 hol. He is here visiting. Tried to have a telemedicine visit with his primary doctor but was unable to perform this. He did take aspirin prior to his arrival here in the ER today. Related Data Home Medications Medication Instructions Recorded Confirmed hydroxychloroquine 02/17/20 03/28/20 losartan 25 mg tablet 25 mg PO DAILY 02/17/20 03/27/24 Previous Rx's Medication Instructions Recorded lidocaine 5 % topical patch 1 patch topical DAILY #5 ea 02/17/20 naproxen 500 mg tablet (Naprosyn) 500 mg PO BID PRN pain #14 tabs 02/17/20 triamcinolone acetonide 0.1 % 1 applic topical BID #80 grams 03/28/20 topical cream Allergies Allergy/AdvReac Type Severity Reaction Status Date / Time No Known Drug Allergies Allergy Verified 06/02/23 07:55 Review of Systems <Santhosh Mcdonald DO - Last Filed: 03/28/24 07:00> Review of Systems ROS Unobtainable: All systems reviewed & are unremarkable except as noted in HPI and below Patient History <Santhosh Mcdonald DO - Last Filed: 03/28/24 07:00> Medical History Cellulitis Skin rash Arthritis Social History household members: spouse Smoking Status: Former smoker alcohol intake: current Smoking Status: Former smoker alcohol intake frequency: 3 or more drinks per day Substance Use Type: does not use Exam <Santhosh Mcdonald DO - Last Filed: 03/28/24 07:00> Initial Vital Signs Initial Vital Signs: Vital Signs Temperature 97.7 F 03/27/24 15:58 Pulse Rate 63 03/27/24 15:58 Respiratory Rate 18 03/27/24 15:58 Blood Pressure 187/82 H 03/27/24 15:58 Pulse Oximetry 99 03/27/24 15:58 Oxygen Delivery Method Room Air 03/27/24 15:58 Const General: cooperative, comfortable and No ill appearing HENCO Head: normal to inspection and normocephalic Resp Effort & Inspection: normal respiratory effort Auscultation: clear to auscultation bilaterally Cardio Rate: regular rate Rhythm: regular rhythm GI Inspection: normal to inspection and non-distended Neuro General: patient alert, patient awake and moves all extremities Extrem General: edema <Savage Yancey MD - Last Filed: 03/28/24 01:46> Initial Vital Signs Initial Vital Signs: Vital Signs Temperature 97.7 F 03/27/24 15:58 Pulse Rate 63 03/27/24 15:58 Respiratory Rate 18 03/27/24 15:58 Blood Pressure 187/82 H 03/27/24 15:58 Pulse Oximetry 99 03/27/24 15:58 Oxygen Delivery Method Room Air 03/27/24 15:58 Course <Santhosh Mcdonald DO - Last Filed: 03/28/24 07:00> Orders Ordered: Acetaminophen (Acetaminophen 325 Mg Tablet) 650 mg PO Q6H PRN PRN Reason: Fever/Mild Pain (1-3) Enoxaparin Sodium (Enoxaparin 40 Mg/0.4 Ml Syringe) 40 mg SUBCUT DAILY [facility] Folic Acid (Folic Acid 1 Mg Tablet) 1 mg PO DAILY [facility] Furosemide (Furosemide 40 Mg/4 Ml Vial) 40 mg IV DAILY [facility] Hydralazine HCl (Hydralazine 20 Mg/Ml Vial) 10 mg IV Q6HR PRN PRN Reason: Hypertension Last Admin: 03/28/24 05:29 Dose: 10 mg Documented By: BR Lorazepam (Lorazepam 1 Mg Tablet) 0 mg PO CIWAPRN PRN; Protocol PRN Reason: Alcohol Withdrawal Losartan Potassium (Losartan 25 Mg Tablet) 25 mg PO DAILY [facility] Metoprolol Tartrate (Metoprolol Ir 25 Mg Tablet) 25 mg PO BID [facility] Multivitamins (Multivitamin 1 Tablet) 1 tab PO DAILY [facility] Naloxone HCl (Naloxone 0.4 Mg/Ml Vial) 0.2 mg IV Q2MIN PRN PRN Reason: Opiate Reversal Ondansetron HCl (Ondansetron 4 Mg/2 Ml Inj) 4 mg IV Q8HR PRN PRN Reason: Nausea And Vomiting Pantoprazole Sodium (Pantoprazole Dr 20 Mg Tablet) 20 mg PO 0700 [facility] Last Admin: 03/28/24 06:43 Dose: 20 mg Documented By: DIVINA Thiamine HCl (Thiamine 100 Mg Tablet) 100 mg PO DAILY [facility] Stop: 03/31/24 09:01 Discontinued Medications Aspirin (Aspirin 81 Mg Chew Tab) 324 mg PO NOW ONE Stop: 03/27/24 16:07 Last Admin: 03/27/24 16:43 Dose: Not Given Documented By: TANVIR Furosemide 60 mg/ Sodium (Chloride) 56 mls @ 112 mls/hr IV NOW ONE Stop: 03/27/24 17:22 Last Infusion: 03/27/24 18:25 Dose: Infused Documented By: Admin: 03/27/24 17:54 Dose: 112 mls/hr Documented By: TANVIR Magnesium Sulfate (Magnesium Sulfate) 2 gm in 50 mls @ 150 mls/hr IV NOW ONE Stop: 03/27/24 20:02 Last Infusion: 03/27/24 20:20 Dose: Infused Documented By: MICHAEL Co-signed By: ROBERT Admin: 03/27/24 19:53 Dose: 150 mls/hr Documented By: Co-signed By: MICHAEL Losartan Potassium (Losartan 50 Mg Tablet) 50 mg PO NOW ONE Stop: 03/27/24 19:59 Last Admin: 03/27/24 21:26 Dose: Not Given Documented By: Vital Signs Vital signs: Vital Signs - 8 hr 03/27/24 18:00 03/27/24 18:00 03/27/24 18:30 Pulse Rate 54 L 53 L Respiratory Rate 21 27 H Blood Pressure 184/79 H Pulse Oximetry 100 100 03/27/24 18:32 03/27/24 18:32 03/27/24 18:41 Pulse Rate 53 L 62 Respiratory Rate 24 31 H Blood Pressure 166/77 H Pulse Oximetry 100 94 03/27/24 18:41 03/27/24 19:00 07/07/24 19:01 Pulse Rate 56 L 56 L Respiratory Rate 26 H 26 H Blood Pressure 191/77 H Pulse Oximetry 98 100 03/27/24 19:01 03/27/24 19:30 03/27/24 19:31 Pulse Rate 58 L 57 L Respiratory Rate 26 H 25 H Blood Pressure 168/78 H Pulse Oximetry 03/27/24 19:31 03/27/24 20:00 03/27/24 20:00 Pulse Rate 58 L Respiratory Rate 21 Blood Pressure 174/81 H 181/80 H Pulse Oximetry 100 <Savage Yancey MD - Last Filed: 03/28/24 01:46> Orders Ordered: Acetaminophen (Acetaminophen 325 Mg Tablet) 650 mg PO Q6H PRN PRN Reason: Fever/Mild Pain (1-3) Enoxaparin Sodium (Enoxaparin 40 Mg/0.4 Ml Syringe) 40 mg SUBCUT DAILY [facility] Folic Acid (Folic Acid 1 Mg Tablet) 1 mg PO DAILY [facility] Furosemide (Furosemide 40 Mg/4 Ml Vial) 40 mg IV DAILY [facility] Hydralazine HCl (Hydralazine 20 Mg/Ml Vial) 10 mg IV Q6HR PRN PRN Reason: Hypertension Last Admin: 03/28/24 05:29 Dose: 10 mg Documented By: BR Lorazepam (Lorazepam 1 Mg Tablet) 0 mg PO CIWAPRN PRN; Protocol PRN Reason: Alcohol Withdrawal Losartan Potassium (Losartan 25 Mg Tablet) 25 mg PO DAILY [facility] Metoprolol Tartrate (Metoprolol Ir 25 Mg Tablet) 25 mg PO BID [facility] Multivitamins (Multivitamin 1 Tablet) 1 tab PO DAILY [facility] Naloxone HCl (Naloxone 0.4 Mg/Ml Vial) 0.2 mg IV Q2MIN PRN PRN Reason: Opiate Reversal Ondansetron HCl (Ondansetron 4 Mg/2 Ml Inj) 4 mg IV Q8HR PRN PRN Reason: Nausea And Vomiting Pantoprazole Sodium (Pantoprazole Dr 20 Mg Tablet) 20 mg PO 0700 [facility] Last Admin: 03/28/24 06:43 Dose: 20 mg Documented By: BR Thiamine HCl (Thiamine 100 Mg Tablet) 100 mg PO DAILY [facility] Stop: 03/31/24 09:01 Discontinued Medications Aspirin (Aspirin 81 Mg Chew Tab) 324 mg PO NOW ONE Stop: 03/27/24 16:07 Last Admin: 03/27/24 16:43 Dose: Not Given Documented By: RLS Furosemide 60 mg/ Sodium (Chloride) 56 mls @ 112 mls/hr IV NOW ONE Stop: 03/27/24 17:22 Last Infusion: 03/27/24 18:25 Dose: Infused Documented By: Admin: 03/27/24 17:54 Dose: 112 mls/hr Documented By: TANVIR Magnesium Sulfate (Magnesium Sulfate) 2 gm in 50 mls @ 150 mls/hr IV NOW ONE Stop: 03/27/24 20:02 Last Infusion: 03/27/24 20:20 Dose: Infused Documented By: MICHAEL Co-signed By: ROBERT Admin: 03/27/24 19:53 Dose: 150 mls/hr Documented By: Co-signed By: MICHAEL Losartan Potassium (Losartan 50 Mg Tablet) 50 mg PO NOW ONE Stop: 03/27/24 19:59 Last Admin: 03/27/24 21:26 Dose: Not Given Documented By: Vital Signs Vital signs: Vital Signs - 8 hr 03/27/24 18:00 03/27/24 18:00 03/27/24 18:30 Pulse Rate 54 L 53 L Respiratory Rate 21 27 H Blood Pressure 184/79 H Pulse Oximetry 100 100 03/27/24 18:32 03/27/24 18:32 03/27/24 18:41 Pulse Rate 53 L 62 Respiratory Rate 24 31 H Blood Pressure 166/77 H Pulse Oximetry 100 94 03/27/24 18:41 03/27/24 19:00 03/27/24 19:01 Pulse Rate 56 L 56 L Respiratory Rate 26 H 26 H Blood Pressure 191/77 H Pulse Oximetry 98 100 03/27/24 19:01 03/27/24 19:30 03/27/24 19:31 Pulse Rate 58 L 57 L Respiratory Rate 26 H 25 H Blood Pressure 168/78 H Pulse Oximetry 03/27/24 19:31 03/27/24 20:00 03/27/24 20:00 Pulse Rate 58 L Respiratory Rate 21 Blood Pressure 174/81 H 181/80 H Pulse Oximetry 100 MDM - Chest Pain <Santhosh Mcdonald DO - Last Filed: 03/28/24 07:00> Lab Data Attestation: I reviewed the patient's lab results. 03/28/24 06:15 03/28/24 06:15 Labs: Lab Results 03/27/24 03/27/24 Range/Units 16:22 18:30 WBC 10.1 (4.5-11.0) X10^3/uL RBC 3.66 L (4.5-5.9) X10^6/uL Hgb 11.7 L (13.5-17.5) g/dL Hct 34.1 L (41-53) % MCV 93.2 (80-100) fL MCH 31.8 (26-34) PG MCHC 34.2 (30-36) % RDW 14.0 (11.6-14.8) % Plt Count 331 (150-400) X10^3/uL Neut % (Auto) 74.6 (50-75) % Lymph % (Auto) 11.9 L (25-40) % [place] % (Auto) 11.0 (3-14) % Eos % (Auto) 1.5 L (2-4) % Baso % (Auto) 1.0 (0-2) % Neut # (Auto) 7600 H (1906-4523) /uL Lymph # (Auto) 1200 (4076-1032) /uL [place] # (Auto) 1100 H (0-900) /uL Eos # (Auto) 100 (0-450) /uL Baso # (Auto) 100 (0-100) /uL PT 12.8 H (9.4-12.5) SECONDS INR 1.1 (0.9-1.3) APTT 34 (25.1-36.5) SECONDS Sodium 135 L (137-145) mmol/L Potassium 4.9 (3.4-5.1) mmol/L Chloride 103 (98-107) mmol/L Carbon Dioxide 28 (22-32) mmol/L BUN 10 (9-20) mg/dL Creatinine 0.82 (0.66-1.25) mg/dL Estimated GFR > 60 (>60) mL/min BUN/Creatinine Ratio 12.2 (6-22) Glucose 92 (80-110) mg/dL Calcium 8.7 (8.4-10.2) mg/dL Magnesium 1.5 L (1.6-2.3) mg/dL Total Bilirubin 0.6 (0.2-1.3) mg/dL AST 55 (17-59) IU/L ALT 71 H (<50) IU/L Alkaline Phosphatase 110 (38-126) U/L Total Creatine Kinase 73 66 (55-170) U/L Troponin I < 0.012 < 0.012 (0.01-0.034) ng/mL NT-Pro-B Natriuret Pep 3690 H (<125) pg/mL Total Protein 6.6 (6.3-8.2) g/dL Albumin 3.6 (3.5-5.0) g/dL Globulin 3.0 (1.7-4.1) g/dL Albumin/Globulin Ratio 1.2 (1.0-2.8) Lipase 88 (23-300) U/L Imaging Data Chest x-ray: Radiologist's Impression: PROCEDURE: XR CHEST 1V INDICATIONS: chest pain TECHNIQUE: One view of the chest was acquired. COMPARISON: [facility], , XR CHEST 1V, 03/31/2023, 10:46. FINDINGS: Surgical changes and devices: None. Lungs and pleura: Lungs are clear. No pleural effusions or pneumothorax. Mediastinum: Mediastinal contours appear normal. Heart size is normal. Bones and chest wall: No suspicious bony lesions. Overlying soft tissues appear unremarkable. IMPRESSION: No acute cardiopulmonary abnormality is seen. ECG Data Attestation: I personally reviewed and interpreted this ECG as follows: Interpretation: Sinus rhythm Ventricular rate of 60 Normal axis Normal QRS Inverted T-waves 2 3 AVF, V1 V2 V3 V4 V5 V[address] elevations MDM Narrative Medical decision making narrative: Patient has been sort of breath specific dyspnea on exertion for the past 2 days. Does have some mild chest discomfort. Troponin negative. Chest x-ray shows no signs of edema but his BNP is elevated and he does have lower extremity edema. Patient was given Lasix. His sinus rhythm. Does have inverted T-waves but there are no old EKGs to compare to. Repeat troponin ordered. Care turned over to Dr. Yancey to follow-up on EKG and disposition. <Savage Yancey MD - Last Filed: 03/28/24 01:46> Lab Data Labs: Lab Results 03/27/24 03/27/24 Range/Units 16:22 18:30 WBC 10.1 (4.5-11.0) X10^3/uL RBC 3.66 L (4.5-5.9) X10^6/uL Hgb 11.7 L (13.5-17.5) g/dL Hct 34.1 L (41-53) % MCV 93.2 (80-100) fL MCH 31.8 (26-34) PG MCHC 34.2 (30-36) % RDW 14.0 (11.6-14.8) % Plt Count 331 (150-400) X10^3/uL Neut % (Auto) 74.6 (50-75) % Lymph % (Auto) 11.9 L (25-40) % [place] % (Auto) 11.0 (3-14) % Eos % (Auto) 1.5 L (2-4) % Baso % (Auto) 1.0 (0-2) % Neut # (Auto) 7600 H (1226-2238) /uL Lymph # (Auto) 1200 (5192-8910) /uL [place] # (Auto) 1100 H (0-900) /uL Eos # (Auto) 100 (0-450) /uL Baso # (Auto) 100 (0-100) /uL PT 12.8 H (9.4-12.5) SECONDS INR 1.1 (0.9-1.3) APTT 34 (25.1-36.5) SECONDS Sodium 135 L (137-145) mmol/L Potassium 4.9 (3.4-5.1) mmol/L Chloride 103 (98-107) mmol/L Carbon Dioxide 28 (22-32) mmol/L BUN 10 (9-20) mg/dL Creatinine 0.82 (0.66-1.25) mg/dL Estimated GFR > 60 (>60) mL/min BUN/Creatinine Ratio 12.2 (6-22) Glucose 92 (80-110) mg/dL Calcium 8.7 (8.4-10.2) mg/dL Magnesium 1.5 L (1.6-2.3) mg/dL Total Bilirubin 0.6 (0.2-1.3) mg/dL AST 55 (17-59) IU/L ALT 71 H (<50) IU/L Alkaline Phosphatase 110 (38-126) U/L Total Creatine Kinase 73 66 (55-170) U/L Troponin I < 0.012 < 0.012 (0.01-0.034) ng/mL NT-Pro-B Natriuret Pep 3690 H (<125) pg/mL Total Protein 6.6 (6.3-8.2) g/dL Albumin 3.6 (3.5-5.0) g/dL Globulin 3.0 (1.7-4.1) g/dL Albumin/Globulin Ratio 1.2 (1.0-2.8) Lipase 88 (23-300) U/L MDM Narrative Medical decision making narrative: Patient has been sort of breath specific dyspnea on exertion for the past 2 days. Does have some mild chest discomfort. Troponin negative. Chest x-ray shows no signs of edema but his BNP is elevated and he does have lower extremity edema. Patient was given Lasix. His sinus rhythm. Does have inverted T-waves but there are no old EKGs to compare to. Repeat troponin ordered. Care turned over to Dr. Yancey to follow-up on EKG and disposition. Bc, 03/27/2024, 1800, sign-out from Dr. Mcdonald, transfer of care accept note. Chart reviewed. Patient examined independently by me. 73-year-old male with history of prior atrial fibrillation, alcohol use, previous detox in home [facility], has home up here in the [place] as well, recent alcohol use over the 24 of March weekend, now with shortness of breath or last 2 days, edema to both legs, some chest tightness. EKGs sinus rhythm with diffuse T-wave inversions compared to study available here from 03/21/2023. Initial troponin negative. Chest x-ray unremarkable. BNP 3690 is elevated from comparison value 408 in 2022. Patient was given IV Lasix 60 mg dose here, urinating, feels improved. Interval troponin pending to be drawn soon. Consider admission for echo and potential cardiac stress testing, if patient willing. Assumed interim care. No magnesium 1.5 noted, IV magnesium ordered. Repeat troponin negative. We will contact Cardiology for dispo planning. Case discussed with Dr. Blanc cardiology, agrees with the need for admission, we would start workup with echocardiogram. For now he would give losartan 50 mg, further IV Lasix diuresis. Pending results of the cardiac echo, he might be a candidate for Entresto. Advises admit here to hospitalist. Will contact hospitalist. Patient agreeable to admission for above plan, states that he already takes losartan 25mg 2 pills daily. We will hold additional losartan for now. 1999, discussed with hospitalist Dr. Rivas, accepts patient for admission to inpatient Critical Care Time <Savage Yancey MD - Last Filed: 03/28/24 01:46> Critical Care Time Critical Care Time: Yes Total Critical Care Time: 35 Attestation: The high probability of a clinically significant, sudden or life threatening deterioration of the [cardiopulmonary] system(s) required my full and direct attention, intervention and personal management. The aggregate critical care time was [35] minutes. This time is in addition to time spent performing reported procedures but includes the following: [x] Data Review and interpretation [x] Patient assessment and monitoring of vital signs [x] Documentation [x] Medication orders and management Discharge Plan Departure Patient Disposition: Admitted As Inpatient Clinical Impression: Dyspnea, Congestive heart failure, History of alcohol abuse, Hypomagnesemia, Abnormal ECG Admit Date/Time: 03/27/24 20:08 Admit Provider: Benton Rivas
[2024-03-27 16:30] LABS: Add Manual Diff / Slide Review NO; Basophils Absolute Auto 100 /uL (0-100); Eosinophils Absolute Auto 100 /uL (0-450); Eosinophils Percent Auto 1.5 % (2-4); Hematocrit 34.1 % (41-53); Hemoglobin 11.7 g/dL (13.5-17.5); Lymphocytes Absolute Auto 1200 /uL (1100-4500); Lymphocytes Percent Auto 11.9 % (25-40); Mean Corpuscular HGB Conc 34.2 % (30-36); Mean Corpuscular Hemoglobin 31.8 PG (26-34); Mean Corpuscular Volume 93.2 fL (80-100); Monocytes Absolute Auto 1100 /uL (0-900); Neutrophils Absolute Auto 7600 /uL (1500-7000); Neutrophils Percent Auto 74.6 % (50-75); Platelet Count 331 X10^3/uL (150-400); Red Blood Cell Count 3.66 X10^6/uL (4.5-5.9); White Blood Cell Count 10.1 X10^3/uL (4.5-11.0)
[2024-03-27 16:38] LABS: INR 1.1 (0.9-1.3); Prothrombin Time 12.8 SECONDS (9.4-12.5)
[2024-03-27 16:41] LABS: PTT Partial Thromboplastin Tim 34 SECONDS (25.1-36.5)
[2024-03-27 16:42] LABS: Alanine Aminotransferase 71 IU/L (<50); Albumin 3.6 g/dL (3.5-5.0); Albumin Globulin Ratio 1.2 (1.0-2.8); Alkaline Phosphatase 110 U/L (38-126); Aspartate Aminotransferase 55 IU/L (17-59); BUN Creatinine Ratio 12.2 (6-22); Bilirubin Total 0.6 mg/dL (0.2-1.3); Blood Urea Nitrogen 10 mg/dL (9-20); Calcium 8.7 mg/dL (8.4-10.2); Carbon Dioxide 28 mmol/L (22-32); Chloride 103 mmol/L (98-107); Creatine Kinase 73 U/L (55-170); Estimated Glomerular Filt Rate > 60 mL/min (>60); Glucose 92 mg/dL (80-110); HEMOLYSIS < 15 (0-50); Lipase 88 U/L (23-300); Magnesium 1.5 mg/dL (1.6-2.3); Potassium 4.9 mmol/L (3.4-5.1); Sodium 135 mmol/L (137-145); Total Protein 6.6 g/dL (6.3-8.2)
[2024-03-27 16:54] LABS: NT-proBNP (BNP-Adult 18+) 3690 pg/mL (<125); Troponin I < 0.012 ng/mL (0.01-0.034)
[2024-03-27] MEDS: FUROSEMIDE 60 MG in SODIUM CHLORIDE 0.9% 50 ML 112 MG IV (17:54)
[2024-03-27 18:46] LABS: Creatine Kinase 66 U/L (55-170)
[2024-03-27 18:59] LABS: Troponin I < 0.012 ng/mL (0.01-0.034)
[2024-03-27] MEDS: MAGNESIUM SULFATE 2 GM/50 ML PIGGYBACK IV (19:53)
--- NOTE | 2024-03-27 20:51 | PC.NURSE ---
Pt report that when he withdrawls that he does not have seizures, and is not treated with other medications than his normal everyday medications. Pt states that last medical detox was end of february 2024. See CIWA for current symptoms.
--- NOTE | 2024-03-27 20:53 | PC.NURSE ---
Will treat BP and headache as needed.
--- NOTE | 2024-03-28 04:57 | P.HP_ITS ---
History of Present Illness History of Present Illness Date Patient Seen: 03/27/24 Time Patient Seen: 23:30 Chief complaint: SOB Narrative: 73 years old male with a past medical history of atrial fibrillation paroxysmal now in sinus not on anticoagulation, hypertension and other medical issues presented to the emergency room for worsening shortness of breath with dyspnea on exertion and chest tightness that has since resolved. Denies any cough wheezing headache or upper respiratory symptoms. Denies any lower extremity edema. Does have a history of alcohol use and recently discharged from 3-day [facility] center and was drinking over the March 24 weekend. He lives partly in the community for the summer moving health during the winter. Recent history is not completely available given his travels. Denies any abdominal pain nausea or vomiting. No bowel or the bladder issues. In the ED noted to have a systolic of 187. Further labs revealed a white count of 10.1 with a hemoglobin of 11.7 and a platelet count of 331. Sodium is 135 potassium 4.9 BUN 10 and a creatinine of 0.8. AST/ALT was 55/71. BNP was 3690. Chest x-ray possibility of fluid overload cannot be ruled out. EKG shows inverted T waves which is new not seen in the recent hospitalization. Patient was admitted for further evaluation [facility] Medical History Cellulitis Skin rash Arthritis Social History household members: spouse Smoking Status: Former smoker alcohol intake: current Meds Home Medications and Allergies Home Medications Medication Instructions Recorded Confirmed Type hydroxychloroquine 02/17/20 03/28/20 History lidocaine 5 % topical patch 1 patch topical DAILY #5 ea 02/17/20 03/27/24 Rx losartan 25 mg tablet 25 mg PO DAILY 02/17/20 03/27/24 History naproxen 500 mg tablet (Naprosyn) 500 mg PO BID PRN pain #14 tabs 02/17/20 03/28/20 Rx triamcinolone acetonide 0.1 % 1 applic topical BID #80 grams 03/28/20 03/27/24 Rx topical cream Allergies Allergy/AdvReac Type Severity Reaction Status Date / Time No Known Drug Allergies Allergy Verified 06/02/23 07:55 Review of Systems Review of Systems Narrative: 12 point review of system is negative unless otherwise stated in the history of present illness Exam Vital Signs (past 8 hours): - 03/27/24 21:00 03/27/24 21:01 03/27/24 21:01 Temperature Pulse Rate 54 L 54 L Respiratory Rate 26 H 26 H Blood Pressure 174/75 H Pulse Oximetry 98 98 03/27/24 21:53 Temperature 97.6 F Pulse Rate 56 L Respiratory Rate 16 Blood Pressure 168/70 H Pulse Oximetry 100 Oxygen Delivery Method Room Air Narrative Exam Narrative: Patient appears fatigued. Air entry decreased at the base. Abdomen soft bowel sounds are heard Objective Labs 03/27/24 16:22 03/27/24 16:22 Labs: Laboratory Results - last 24 hr 03/27/24 03/27/24 16:22 18:30 WBC 10.1 RBC 3.66 L Hgb 11.7 L Hct 34.1 L MCV 93.2 MCH 31.8 MCHC 34.2 RDW 14.0 Plt Count 331 Neut % (Auto) 74.6 Lymph % (Auto) 11.9 L [place] % (Auto) 11.0 Eos % (Auto) 1.5 L Baso % (Auto) 1.0 Neut # (Auto) 7600 H Lymph # (Auto) 1200 [place] # (Auto) 1100 H Eos # (Auto) 100 Baso # (Auto) 100 PT 12.8 H INR 1.1 APTT 34 Sodium 135 L Potassium 4.9 Chloride 103 Carbon Dioxide 28 BUN 10 Creatinine 0.82 Estimated GFR > 60 BUN/Creatinine Ratio 12.2 Glucose 92 Calcium 8.7 Magnesium 1.5 L Total Bilirubin 0.6 AST 55 ALT 71 H Alkaline Phosphatase 110 Total Creatine Kinase 73 66 Troponin I < 0.012 < 0.012 NT-Pro-B Natriuret Pep 3690 H Total Protein 6.6 Albumin 3.6 Globulin 3.0 Albumin/Globulin Ratio 1.2 Lipase 88 Assessment & Plan Assessment & Plan narrative: 73 years old male with a past medical history of atrial fibrillation paroxysmal now in sinus not on anticoagulation, hypertension and other medical issues presented to the emergency room for worsening shortness of breath with dyspnea on exertion and chest tightness that has since resolved. Denies any cough wheezing headache or upper respiratory symptoms. Denies any lower extremity edema. Does have a history of alcohol use and recently discharged from 3-day medical detox center and was drinking over the March 24 weekend. He lives partly in the community for the summer moving health during the winter. Recent history is not completely available given his travels. Denies any abdominal pain nausea or vomiting. No bowel or the bladder issues. In the ED noted to have a systolic of 187. Further labs revealed a white count of 10.1 with a hemoglobin of 11.7 and a platelet count of 331. Sodium is 135 potassium 4.9 BUN 10 and a creatinine of 0.8. AST/ALT was 55/71. BNP was 3690. Chest x-ray possibility of fluid overload cannot be ruled out. EKG shows inverted T waves which is new not seen in the recent hospitalization. Patient was admitted for further evaluation 1. Acute dyspnea with chest tightness in a patient with history of alcohol abuse and paroxysmal atrial fibrillation and nonspecific EKG changes. Suspect more of a heart failure symptoms and respiratory symptoms at this time. Continue with IV diuresis initiated in the emergency room and focus on better blood pressure control. Follow-up with an echocardiogram and monitor on telemetry with serial cardiac enzymes 2. Hypertension resume the home dose of losartan with as needed IV hydralazine in addition to the Lasix while watching the blood pressure closely 3 atrial fibrillation paroxysmal now in sinus. Initiated on low-dose beta- blockers but watch the heart rate closely. Patient was categorical that he does not want any blood thinner. Initiate him on baby aspirin if agreeable 4 GI prophylaxis will be Protonix I DVT prophylaxis will be Lovenox 6 hypomagnesemia supplement with IV Patient is a full code for now. Patient is admitted under observation status Location of the patient is [facility] and provider is remote on telemedicine with a video communication device Time-Based Coding :: [TOTAL MINUTES] spent with patient and on the chart (including review of chart, obtaining history, exam, reviewing outside data, placing orders, documenting exam and treatment plan, and counseling patient) on [DATE]. Quality VTE Deep Vein Thrombosis/Pulmonary Embolism Present on Admission: No
[2024-03-28 05:15] VITALS: BP 169/90; PULSE 56; RESP 16; TEMP 36.9; O2SAT 98
[2024-03-28 05:29] VITALS: BP 176/96; PULSE 66
[2024-03-28] MEDS: HYDRALAZINE 20 MG/ML VIAL 10 MG IV (05:29)
[2024-03-28 06:01] VITALS: BP 138/62; PULSE 55
[2024-03-28 06:31] LABS: Add Manual Diff / Slide Review NO; Basophils Absolute Auto 100 /uL (0-100); Basophils Percent Auto 1.2 % (0-2); Eosinophils Absolute Auto 200 /uL (0-450); Eosinophils Percent Auto 2.4 % (2-4); Hematocrit 37.4 % (41-53); Hemoglobin 12.9 g/dL (13.5-17.5); Lymphocytes Absolute Auto 1400 /uL (1100-4500); Lymphocytes Percent Auto 14.8 % (25-40); Mean Corpuscular HGB Conc 34.5 % (30-36); Mean Corpuscular Hemoglobin 32.1 PG (26-34); Monocytes Absolute Auto 1100 /uL (0-900); Monocytes Percent Auto 12.1 % (3-14); Neutrophils Absolute Auto 6600 /uL (1500-7000); Neutrophils Percent Auto 69.5 % (50-75); Platelet Count 354 X10^3/uL (150-400); Red Blood Cell Count 4.02 X10^6/uL (4.5-5.9); Red Cell Distribution Width 13.9 % (11.6-14.8); White Blood Cell Count 9.5 X10^3/uL (4.5-11.0)
[2024-03-28 06:41] LABS: INR 1.2 (0.9-1.3); Prothrombin Time 13.5 SECONDS (9.4-12.5)
[2024-03-28] MEDS: PANTOPRAZOLE DR 20 MG TABLET PO (06:43)
[2024-03-28 06:45] LABS: Alanine Aminotransferase 64 IU/L (<50); Albumin 3.7 g/dL (3.5-5.0); Albumin Globulin Ratio 1.3 (1.0-2.8); Alkaline Phosphatase 90 U/L (38-126); Aspartate Aminotransferase 42 IU/L (17-59); BUN Creatinine Ratio 14.4 (6-22); Bilirubin Total 0.7 mg/dL (0.2-1.3); Blood Urea Nitrogen 13 mg/dL (9-20); Calcium 9.2 mg/dL (8.4-10.2); Carbon Dioxide 31 mmol/L (22-32); Chloride 100 mmol/L (98-107); Estimated Glomerular Filt Rate > 60 mL/min (>60); Globulin 2.9 g/dL (1.7-4.1); Glucose 126 mg/dL (80-110); HEMOLYSIS < 15 (0-50); Magnesium 1.9 mg/dL (1.6-2.3); Phosphorous 4.3 mg/dL (2.3-3.7); Potassium 4.3 mmol/L (3.4-5.1); Sodium 134 mmol/L (137-145); Total Protein 6.6 g/dL (6.3-8.2)
--- NOTE | 2024-03-28 07:44 | DI.ECHO.S_ITS ---
[facility] : : [address] : : [place] : : [id number] : : Phone: [phone] Echocardiogram Report + + :Name: KAIDEN MIXON Study Date: 03/28/2024 Height: 67 in : :Hospital ReadingLocation: Weight: 154 lb : : Gender: Male BSA: 1.8 m2 : :: 1950 Age: 73 yrs BP: 176/96 mmHg: :Reason For Study: CONGESTIVE HEART FAILURE : :Ordering Physician: STEVAN, : :DOMIITLA Barahona MD Performed By: Ofelia Garcia : :Referring: DOMITILA CALLES MD : + + Interpretation Summary The ejection fraction is estimated to be 55-60%. Diastolic function could not be accurately assessed due to contradictory data. The right ventricle is mildly dilated. The right ventricular systolic function is normal. There is mild biatrial enlargement. A small patent foramen ovale is suspected. There is mild mitral regurgitation. There is mild to moderate aortic regurgitation. There is mild tricuspid regurgitation. The right ventricular systolic pressure is estimated to be at least 41 mmHg based on an estimated right atrial pressure of 3 mm Hg. Procedure: A two-dimensional transthoracic echocardiogram with color flow and Doppler was performed. The study quality was technically adequate. There is no prior echocardiogram noted for this patient. The patient was in sinus bradycardia with heart rates between 55-60 bpm during the exam. Left Ventricle: The left ventricle is normal in size and wall thickness. The ejection fraction is estimated to be 55-60%. Diastolic function could not be accurately assessed due to contradictory data. Right Ventricle: The right ventricle is mildly dilated. The right ventricular systolic function is normal. Atria: There is mild biatrial enlargement. A patent foramen ovale is suspected. Mitral Valve: The mitral valve leaflets appear mildly thickened, but open well. There is mild mitral annular calcification. There is mild mitral regurgitation. Aortic Valve: The aortic valve is not well visualized. The aortic valve is slightly calcified. There is no aortic valve stenosis. There is mild to moderate aortic regurgitation. Tricuspid Valve: The tricuspid valve is normal in structure and function. There is mild tricuspid regurgitation. The right ventricular systolic pressure is estimated to be at least 41 mmHg based on an estimated right atrial pressure of 3 mm Hg. Pulmonic Valve: The pulmonic valve leaflets are thin and pliable; valve motion is normal. There is trace pulmonic regurgitation. Great Vessels: The aortic root is normal size. The dimensions of the ascending aorta are normal. The IVC is of normal diameter and collapses greater than 50% with a sniff. This suggests a low right atrial pressure of 3 mm Hg. Pericardium/ Pleura There is no pericardial effusion. There is no pleural effusion. MMode/2D Measurements & Calculations LVIDd: 5.1 cm LVOT diam: 2.0 cm LVIDs: 3.3 cm Ao root diam: 3.6 cm FS: 35.7 % Ao Arch Diam (Prox Trans): 2.5 cm IVSd: 0.84 cm LVPWd: 0.67 cm LV perez. diameter/BSA (cm/m^2): 2.8 LV sys. diameter/BSA (cm/m^2): 1.8 LA A2 area: 22.6 cm2 RA long axis: 5.6 cm LA A4 area: 19.1 cm2 RA area: 20.3 cm2 LA length (vol): 5.5 cm RA vol: 62.8 ml LA vol: 66.4 ml RA : 34.7 ml/m2 LA vol index: 36.7 ml/m2 IVC diam: 1.8 cm RVD1 (basal): 4.3 cm RVD2 (mid): 2.7 cm TAPSE: 3.3 cm Doppler Measurements & Calculations Ao V2 max: 146.0 cm/sec LVOT Max Cipriano: 105.7 cm/sec Ao V2 mean: 98.0 cm/sec LV V1 max P.5 mmHg Ao max P.5 mmHg LV V1 VTI: 24.5 cm Ao mean P.3 mmHg CARMEN(I,D): 2.4 cm2 Ao V2 VTI: 32.4 cm CARMEN(V,D): 2.3 cm2 sev ratio: 0.76 CARMEN indexed to BSA (cm^2/m^2): 1.3 AI P1/2t: 496.5 msec AI dec slope: 188.2 cm/sec2 MV E max cipriano: 77.3 cm/sec TR max cipriano: 308.0 cm/sec MV A max cipriano: 31.6 cm/sec TR max P.9 mmHg MV E/A: 2.4 PA V2 max: 82.9 cm/sec Med Peak E' Cipriano: 7.4 cm/sec PA V2 mean: 58.5 cm/sec E/E' med: 10.5 PA mean P.5 mmHg Lat Peak E' Cipriano: 11.0 cm/sec PA pr(Accel): 1.9 mmHg E/E' lat: 7.0 E/e' average: 8.7 MV dec time: 0.24 sec SV(LVOT): 76.4 ml Reading Physician:09:21 AM
[2024-03-28 08:00] VITALS: BP 157/67; PULSE 59; RESP 16; TEMP 36.7; O2SAT 98
[2024-03-28 08:19] VITALS: BP 157/67; PULSE 59
[2024-03-28] MEDS: ENOXAPARIN 40 MG/0.4 ML SYRINGE SUBCUT (08:19)
[2024-03-28] MEDS: FUROSEMIDE 40 MG/4 ML VIAL IV (08:19)
[2024-03-28] MEDS: LOSARTAN 25 MG TABLET PO (08:19)
[2024-03-28] MEDS: ACETAMINOPHEN 325 MG TABLET 650 MG PO (08:19)
[2024-03-28] MEDS: METOPROLOL IR 25 MG TABLET PO (08:19)
[2024-03-28] MEDS: MULTIVITAMIN 1 TABLET 1 TAB PO (08:19)
[2024-03-28] MEDS: FOLIC ACID 1 MG TABLET PO (08:20)
[2024-03-28] MEDS: THIAMINE 100 MG TABLET PO (08:20)
--- NOTE | 2024-03-28 09:29 | PM.DS.1 ---
History of Present Illness History of Present Illness Date Patient Seen: 03/28/24 Time Patient Seen: 09:29 Chief complaint: SOB Narrative: Per admitting provider, 73 years old male with a past medical history of atrial fibrillation paroxysmal now in sinus not on anticoagulation, hypertension and other medical issues presented to the emergency room for worsening shortness of breath with dyspnea on exertion and chest tightness that has since resolved. Denies any cough wheezing headache or upper respiratory symptoms. Denies any lower extremity edema. Does have a history of alcohol use and recently discharged from [facility] and was drinking over the March 24 weekend. He lives partly in the community for the summer moving health during the winter. Recent history is not completely available given his travels. Denies any abdominal pain nausea or vomiting. No bowel or the bladder issues. In the ED noted to have a systolic of 187. Further labs revealed a white count of 10.1 with a hemoglobin of 11.7 and a platelet count of 331. Sodium is 135 potassium 4.9 BUN 10 and a creatinine of 0.8. AST/ALT was 55/71. BNP was 3690. Chest x-ray possibility of fluid overload cannot be ruled out. EKG shows inverted T waves which is new not seen in the recent hospitalization. Patient was admitted for further evaluation Discharge Providers Provider Date of admission: 03/27/24 20:08 Discharge Date: 03/28/24 Primary care physician: Doctor Desiree MD Consults: 03/27/24 23:42 Consult to Dietitian, Adult Routine Comment: Reason For Exam: alcohol use Discharge provider: Evan Mahmood DO Summary Hospital Course Discharge Diagnosis: 1. Acute diastolic heart failure, present on admission 2. Hypertension 3 paroxysmal atrial fibrillation paroxysmal Hospital Course: 73 years old male with a past medical history of atrial fibrillation paroxysmal now in sinus not on anticoagulation, hypertension and other medical issues presented to the emergency room for worsening shortness of breath with dyspnea on exertion and chest tightness that resolved quickly with diuresis. TTE showed no wall motion abnormalities and troponins were negative. Given marked improvement in symptoms, ACS being ruled out, the patient was discharged on oral furosemide and recommend PCP and cardiology evaluation as an outpatient with medication changes. He is resistant to anticoagulation with DOAC, but states he takes a full dose aspirin daily. Home atenolol was changed to metoprolol on discharge. Otherwise no new medication changes. Time Spent with Patient Time spent: Greater than 30 minutes Exam Vital Signs (past 8 hours): - 03/28/24 05:15 03/28/24 05:29 03/28/24 06:01 Temperature 98.5 F Pulse Rate 56 L 66 55 L Respiratory Rate 16 Blood Pressure 169/90 H 176/96 H 138/62 Pulse Oximetry 98 Oxygen Flow Rate 0 03/28/24 08:00 03/28/24 08:19 Temperature 98.1 F Pulse Rate 59 L 59 L Respiratory Rate 16 Blood Pressure 157/67 H 157/67 H Pulse Oximetry 98 Oxygen Flow Rate 0 Oxygen Delivery Method Room Air Oxygen Flow Rate 0 Narrative Exam Narrative: Gen: No acute distress CV RRR Pulm: CTA b/l Abd: S NT ND Ext: No edema. Objective Labs 03/28/24 06:15 03/28/24 06:15 Labs: Laboratory Results - last 24 hr 03/27/24 03/27/24 03/28/24 16:22 18:30 06:15 WBC 10.1 9.5 RBC 3.66 L 4.02 L Hgb 11.7 L 12.9 L Hct 34.1 L 37.4 L MCV 93.2 93.0 MCH 31.8 32.1 MCHC 34.2 34.5 RDW 14.0 13.9 Plt Count 331 354 Neut % (Auto) 74.6 69.5 Lymph % (Auto) 11.9 L 14.8 L [place] % (Auto) 11.0 12.1 Eos % (Auto) 1.5 L 2.4 Baso % (Auto) 1.0 1.2 Neut # (Auto) 7600 H 6600 Lymph # (Auto) 1200 1400 [place] # (Auto) 1100 H 1100 H Eos # (Auto) 100 200 Baso # (Auto) 100 100 PT 12.8 H 13.5 H INR 1.1 1.2 APTT 34 Sodium 135 L 134 L Potassium 4.9 4.3 Chloride 103 100 Carbon Dioxide 28 31 BUN 10 13 Creatinine 0.82 0.90 Estimated GFR > 60 > 60 BUN/Creatinine Ratio 12.2 14.4 Glucose 92 126 H Calcium 8.7 9.2 Phosphorus 4.3 H Magnesium 1.5 L 1.9 Total Bilirubin 0.6 0.7 AST 55 42 ALT 71 H 64 H Alkaline Phosphatase 110 90 Total Creatine Kinase 73 66 Troponin I < 0.012 < 0.012 NT-Pro-B Natriuret Pep 3690 H Total Protein 6.6 6.6 Albumin 3.6 3.7 Globulin 3.0 2.9 Albumin/Globulin Ratio 1.2 1.3 Lipase 88 PFSH Medical History Cellulitis Skin rash Arthritis Social History household members: spouse Smoking Status: Former smoker alcohol intake: current Discharge Plan Discharge Plan Patient Disposition: Home Provider Discharge Comment: You were admitted to the hospital with mild symptoms of heart failure. Improved with fluid removal. Recommend metoprolol now given good response instead of previous atenolol that was prescribed. Please try to follow up with PCP this week or next week to review hospitalization and medication changes. Discharge orders & Medications Prescriptions: New metoprolol tartrate 25 mg Tablet 25 mg PO BID 30 Days Qty: 60 0RF furosemide 20 mg tablet 20 mg PO DAILY 30 Days Qty: 30 0RF Continued triamcinolone acetonide 0.1 % cream 1 applic TOP BID Qty: 80 0RF losartan 25 mg Tablet 25 mg PO DAILY lidocaine 5 % adhesive patch,medicated 1 patch TOP DAILY Qty: 5 0RF Rx Instructions: leave on most painful area for up to 12 hrs aspirin 325 mg Tablet 325 mg PO DAILY Follow up/Referrals: Doctor Desiree, MD [Primary Care Provider] - Diet/Activity/Treatments Diet: Diet as Tolerated, Regular and Low-sodium Activity: As tolerated, no restrictions Visit Report/Discharge Packet Instructions: DI for Heart Failure, Furosemide, Metoprolol Stand Alone Forms: Patient Portal/API, Stroke Signs & Symptoms Discharge Data Primary Care Provider: Doctor Desiree Attending Provider: Benton Rivas Admit Date/Time: 03/27/24 20:08 Quality VTE Deep Vein Thrombosis/Pulmonary Embolism Present on Admission: No MIPS - DC The patient has a history of heart transplant or Left Ventricular Assist Device (LVAD). If yes, STOP here.: No The patient has current or prior documentation of left ventricular ejection fraction (LVEF) less than or equal to 40%, or moderate or severely depressed left ventricular systolic function.: No
== END 2024-03-28 11:45 | disposition home or self-care (01) ==
LOC: ED 20:06 → AC 20:14
PROVIDERS: Emergency Medicine; Admitting Provider Internal Medicine; Emergency Provider Emergency Medicine; Referring Provider Emergency Medicine; Visit Provider Internal Medicine
DX: R07.9 Chest pain, unspecified (principal); R06.02 Shortness of breath; I48.0 Paroxysmal atrial fibrillation; I10 Essential (primary) hypertension
CPT/HCPCS: 36415; 71045; 80053; 82550; 83690; 83735; 83880; 84100; 84484; 85025; 85610; 85730; 93005; 93306; 96365; 96372; 96375; 99285; G0378; J0360; J1650; J1940; J3475